=== PATIENT | female | born 1965 | race Caucasian/White ===

== ENCOUNTER 2016-10-22 06:05 | Emergency (ER) | payer BC ==
[2016-10-22 06:18] VITALS: TEMP 98.3; BMI 24.9
[2016-10-22] MEDS ORDERED: NS 1,000 ML IV ONE (06:36)
--- NOTE | 2016-10-22 07:25 | DIRPT ---
CLINICAL DATA: 51-year-old female with acute onset shortness of breath, syncope, and seizure at work. Initial encounter. EXAM: CHEST 2 VIEW COMPARISON: CT chest abdomen and pelvis 06/28/2015. FINDINGS: Normal lung volumes. Normal cardiac size and mediastinal contours. Visualized tracheal air column is within normal limits. No pneumothorax, pulmonary edema, pleural effusion or confluent pulmonary opacity. Incidental breast implants. No acute osseous abnormality identified. IMPRESSION: No acute cardiopulmonary abnormality. Electronically Signed By: Brock Lazcano M.D. On: 10/22/2016 07:22
[2016-10-22 07:31] LABS: ALL NEG? NO
--- NOTE | 2016-10-22 07:32 | DIRPT ---
CLINICAL DATA: 51-year-old female with syncope at work and seizure. Initial encounter. EXAM: CT HEAD WITHOUT CONTRAST TECHNIQUE: Contiguous axial images were obtained from the base of the skull through the vertex without intravenous contrast. COMPARISON: Brain MRI 10/08/2012 FINDINGS: Mild anterior ethmoid mucosal thickening. Other Visualized paranasal sinuses and mastoids are clear. Visualized orbit soft tissues are within normal limits. Visualized scalp soft tissues are within normal limits. Cerebral volume is stable and within normal limits. Mild asymmetry of the lateral ventricles and mild sulcal variation over the right lateral frontal lobe (series 2, image 16) are stable and appear to be normal variants. No midline shift, ventriculomegaly, mass effect, evidence of mass lesion, intracranial hemorrhage or evidence of cortically based acute infarction. Plata-white matter differentiation is within normal limits throughout the brain. No suspicious intracranial vascular hyperdensity. IMPRESSION: Stable and negative. No acute intracranial abnormality. Electronically Signed By: Brock Lazcano M.D. On: 10/22/2016 07:29
[2016-10-22 07:38] LABS: MDMA* NEG (NEGATIVE); METHAMPHETAMINES NEG (NEGATIVE); OXYCODONE *POSITIVE* (NEGATIVE)
[2016-10-22 07:39] LABS: LEUKOCYTES/URINE NEG (NEGATIVE); NITRITE/URINE NEG (NEGATIVE); RBC/URINE 0-2 (0-5); URINE OCCULT BLOOD NEG (NEG/TRACE); WBC/URINE 0-2 (0-5)
[2016-10-22 07:46] LABS: AUTOMATED BASOPHIL 0.3 % (0-2); AUTOMATED EOSINOPHIL 0.7 % (0-5); AUTOMATED LYMPH 13.5 % (17-44); AUTOMATED MONOCYTE 6.7 % (3-10); AUTOMATED NEUTROPHIL 78.8 % (45-76); MPV 7.6 fL (7.4-10.4)
--- NOTE | 2016-10-22 07:50 | EDPRACDOC ---
ED Seizure HPI - General Information Chief Complaint: Seizure Stated Complaint: SEIZURE Time Seen by Provider: 10/22/16 06:55 Information Source: Patient, [employer] Mode Of Arrival: Ambulance Home Medications: Home Medications Gabapentin 300 mg PO TID 04/11/15 Losartan Potassium 100 mg PO DAILY 04/11/15 Modafinil [Provigil] 200 mg PO DAILY PRN 04/11/15 Amlodipine [Norvasc] 5 mg PO DAILY 10/22/16 Dextroamphetamine/Amphetamine [Adderall Xr 20 mg Capsule] 20 mg PO DAILY Diclofenac Sodium [Voltaren] 50 mg PO DAILY 10/22/16 Doxycycline [Vibramycin] 100 mg PO BID 10/22/16 Allergies/Adverse Reactions: Allergies Allergy/AdvReac Type Severity Reaction Status Date / Time cyclobenzaprine HCl Allergy Agitation Verified 10/22/16 07:24 [From Flexeril] lorazepam [From Ativan] Allergy Agitation Verified 10/22/16 07:24 methocarbamol [From Robaxin] Allergy Agitation Verified 10/22/16 07:24 varenicline tartrate Allergy Agitation Verified 10/22/16 07:24 [From Chantix] - History of Present Illness Onset: DELIVERY LEAD Medications/Treatment DELIVERY LEAD EMS Treatment BLS,ALS,EKG IV Yes Witnessed: YES Postictal: Yes Episodes: Reports: no prior history Seizure Type: Reports: Shaking Prior to Seizure: Reports: Normal During Seizure: Reports: Teeth Clenched Immediately After Seizure: Reports: Confusion Relevant History of: Reports: None - [place] Coma scale Coma Scale Eye Opening: Spontaneous Coma Scale Motor: Obeys Commands Coma Scale Verbal: Confused Coma Scale Total: 14 - Treatment Prior to ED Arrival Reported Medications/Treatment DELIVERY LEAD EMS Treatment BLS,ALS,EKG IV Yes ED Past Medical History - History Reviewed Yes Nurses notes reviewed and agree except as marked - Patient Medical History Cardiac History: Reports: Hypertension GI/ History: Reports: Kidney Stones Musculoskeletal History: Reports: Arthritis (osteoarthritis) Psychological History: Reports: Depression (medicated), Anxiety. Denies: Bipolar Disorder Systemic History: Reports: Anemia (PERNICIOUS ANEMIA HX) Surgical History: Reports: Tonsillectomy/Adnoidectomy. Denies: Hysterectomy - Family Medical History Reports: Hypertension (MOM, SISTERS), Cancer (SISTER-LUNG), Cardiac Disorders ( MOM, SISTER BOTH NC). Denies: Diabetes, Stroke - Social Medical History Smoking Status: Heavy tobacco smoker (5 or more cigarettes/day or daily pipe/ cigar) EDM Review of Systems - Review of Systems ROS Negative Except as Marked: Yes All systems reviewed and were negative except as marked - Physical Exam Constitutional: Alert (Awake), No apparent distress Oriented to: Time, Person, Place Last recorded Vital Signs: Last Vital Signs Temp 98.3 F 10/22/16 06:13 Pulse 60 10/22/16 07:46 Resp 18 10/22/16 07:46 BP 141/70 10/22/16 07:46 Pulse Ox 98 10/22/16 07:46 Oxygen Pulse Oxygen Saturation 98 O2 Device Room Air Oxygen Flow Rate Fraction of Inspired Oxygen ( FIO2) - HEENT Head: Normal ( normocephalic) Eye Exam: Normal (PERRL, EOMI, Sclera white) Oropharynx: Normal (Pharynx:Moist without exudate,Gums-no swelling) ENT EAC: Normal TMJ: Normal Nose: No Symptoms Reported (septum midline) Neck: Normal (FROM, trachea at midline) - Musculoskeletal Back: Normal (Non-Tender) Extremities: Normal (Normal tone, Pulses 2+ No cyanosis or edema, FROM) - Integumentary Skin: Normal, Warm, Dry Lymphatics: Normal (no adenopathy) - Neurologic Memory Impaired: Normal Motor Function: Normal (Normal tone, Pulses 2+ No cyanosis or edema, FROM) Cranial Nerve: Normal (CN II-X11 intact sensation, strength 5/5) Cerebellar: Normal Mood Description: Normal Perception: Normal - Results 10/22/16 07:37 10/22/16 07:37 WBC 9.8 xk/uL (3.8-10.8) 10/22/16 07:37 RBC 4.41 xM/uL (4.20-5.40) 10/22/16 07:37 Hgb 13.2 g/dL (12.0-16.0) 10/22/16 07:37 Hct 39.3 % (36-47) 10/22/16 07:37 MCV 89 fL (81-99) 10/22/16 07:37 MCH 29.8 pg (27-32) 10/22/16 07:37 MCHC 33.5 g/dl (33-36) 10/22/16 07:37 RDW 12.9 % (11.5-14.5) 10/22/16 07:37 Plt Count 268 xk/uL (130-400) 10/22/16 07:37 MPV 7.6 fL (7.4-10.4) 10/22/16 07:37 Neut % (Auto) 78.8 % (45-76) H 10/22/16 07:37 Lymph % (Auto) 13.5 % (17-44) L 10/22/16 07:37 [place] % (Auto) 6.7 % (3-10) 10/22/16 07:37 Eos % (Auto) 0.7 % (0-5) 10/22/16 07:37 Baso % (Auto) 0.3 % (0-2) 10/22/16 07:37 Absolute Neuts (auto) 7.64 xk/uL (1.7-8.2) 10/22/16 07:37 Absolute Lymphs (auto) 1.27 xk/uL (0.65-4.75) 10/22/16 07:37 Urine Color Yellow 10/22/16 07:17 Urine Clarity Clear 10/22/16 07:17 Urine pH 6.0 (5.0-8.0) 10/22/16 07:17 Ur Specific [place] 1.005 (1.003-1.035) 10/22/16 07:17 Urine Protein Neg (NEG/TRACE) 10/22/16 07:17 Urine Glucose (UA) Neg (NEGATIVE) 10/22/16 07:17 Urine Ketones Neg (NEGATIVE) 10/22/16 07:17 Urine Occult Blood Neg (NEG/TRACE) 10/22/16 07:17 Urine Nitrite Neg (NEGATIVE) 10/22/16 07:17 Urine Bilirubin Neg (NEGATIVE) 10/22/16 07:17 Urine Urobilinogen <2.0 MG/DL (0-1) 10/22/16 07:17 Ur Leukocyte Esterase Neg (NEGATIVE) 10/22/16 07:17 Urine RBC 0-2 (0-5) 10/22/16 07:17 Urine WBC 0-2 (0-5) 10/22/16 07:17 Ur Epithelial Cells 2+ 10/22/16 07:17 Urine Bacteria 3+ (NEG/FEW) H 10/22/16 07:17 Urine Mucus Occ (NEG/OCC) 10/22/16 07:17 Urine Opiates Screen Neg (NEGATIVE) 10/22/16 07:17 Ur Oxycodone Screen *positive* (NEGATIVE) H 10/22/16 07:17 Urine Methadone Screen Neg (NEGATIVE) 10/22/16 07:17 Ur Barbiturates Screen Neg (NEGATIVE) 10/22/16 07:17 Ur Tricyclics Screen Neg (NEGATIVE) 10/22/16 07:17 Ur Phencyclidine Scrn Neg (NEGATIVE) 10/22/16 07:17 Ur Amphetamines Screen *positive* (NEGATIVE) H 10/22/16 07:17 U Methamphetamines Scrn Neg (NEGATIVE) 10/22/16 07:17 Urine MDMA Screen Neg (NEGATIVE) 10/22/16 07:17 U Benzodiazepines Scrn Neg (NEGATIVE) 10/22/16 07:17 Urine Cocaine Screen Neg (NEGATIVE) 10/22/16 07:17 Ur THC Screen Neg (NEGATIVE) 10/22/16 07:17 Lab Results 10/22/16 10/22/16 10/22/16 07:37 07:17 07:17 WBC 9.8 RBC 4.41 Hgb 13.2 Hct 39.3 MCV 89 MCH 29.8 MCHC 33.5 RDW 12.9 Plt Count 268 MPV 7.6 Neut % (Auto) 78.8 H Lymph % (Auto) 13.5 L [place] % (Auto) 6.7 Eos % (Auto) 0.7 Baso % (Auto) 0.3 Absolute Neuts (auto) 7.64 Absolute Lymphs (auto) 1.27 Urine Color Yellow Urine Clarity Clear Urine pH 6.0 Ur Specific [place] 1.005 Urine Protein Neg Urine Glucose (UA) Neg Urine Ketones Neg Urine Occult Blood Neg Urine Nitrite Neg Urine Bilirubin Neg Urine Urobilinogen <2.0 Ur Leukocyte Esterase Neg Urine RBC 0-2 Urine WBC 0-2 Ur Epithelial Cells 2+ Urine Bacteria 3+ H Urine Mucus Occ Urine Opiates Screen Neg Ur Oxycodone Screen *positive* H Urine Methadone Screen Neg Ur Barbiturates Screen Neg Ur Tricyclics Screen Neg Ur Phencyclidine Scrn Neg Ur Amphetamines Screen *positive* H U Methamphetamines Scrn Neg Urine MDMA Screen Neg U Benzodiazepines Scrn Neg Urine Cocaine Screen Neg Ur THC Screen Neg Decision Time to Discharge: 08:30 - Departure Yes I personally saw and evaluated the patient. Disposition: Home Condition: Good Final Diagnosis: Seizure Instructions: Seizures Education/Counseling Given To: Patient, Family Member Education/Counseling Given Regarding: Diagnosis, Treatment, Prognosis Referrals: Cam Meier MD [Primary Care Provider] - One Week Blade Lares MD [Staff Physician] - One Week Prescriptions: No Action Losartan Potassium 100 mg PO DAILY Modafinil [Provigil] 200 mg PO DAILY PRN PRN Reason: harsh Gabapentin 300 mg PO TID Dextroamphetamine/Amphetamine [Adderall Xr 20 mg Capsule] 20 mg PO DAILY Amlodipine [Norvasc] 5 mg PO DAILY Diclofenac Sodium [Voltaren] 50 mg PO DAILY Doxycycline [Vibramycin] 100 mg PO BID
[2016-10-22 07:56] LABS: BLOOD UREA NITROGEN 11 MG/DL (7-17); CALCIUM 9.4 MG/DL (8.4-10.2); CALCULATED OSMOLALITY 267 MOs/Kg (270-290); CHLORIDE 106 mEq/L (98-107); GLUCOSE 89 mg/dL (70-99); SODIUM LEVEL 140 mEq/L (137-146); TOTAL PROTEIN 7.2 G/DL (6.3-8.2)
[2016-10-22 08:24] VITALS: BP 143/65; PULSE 57
== END 2016-10-22 08:26 | disposition home or self-care (01) ==
LOC: ED 06:05
DX: R56.9 Unspecified convulsions (principal); R55 Syncope and collapse
CPT/HCPCS: 36415; 70450; 71020; 80053; 80307; 81001; 83605; 84484; 85025; 93005; 96360; 99285